=== PATIENT | female | born 2000 | race Caucasian/White ===

== ENCOUNTER 2023-03-04 11:59 | Emergency (ER) | payer OTHER ==
[2023-03-04 12:35] VITALS: RESP 20; BMI 24.6
[2023-03-04] MEDS ORDERED: ACETAMINOPHEN 1000 MG/100 ML BAG IVPB ONE (13:19)
[2023-03-04] MEDS ORDERED: ACETAMINOPHEN INJECTION 100 ML IVPB ONE (13:23)
[2023-03-04 14:30] LABS: CALCIUM 8.8 mg/dL (8.5-10.1)
[2023-03-04 14:31] LABS: ALBUMIN 2.9 g/dl (3.4-5.0)
[2023-03-04 14:36] LABS: BILIRUBIN,TOTAL 0.4 mg/dL (0.2-1); TOT PROT 6.9 g/dl (6.4-8.2)
[2023-03-04 14:40] LABS: BASO % 0.1 % (0-2.0); HEMATOCRIT 29.5 % (32.4-45.2); HEMOGLOBIN 9.3 GM/dL (10.7-15.3); LYMPH % 5.9 % (8-40); MCH 27.2 pg (25.7-33.7); MCHC 31.3 g/dl (32.0-36.0); MEAN CELL VOLUME 86.7 fl (80-96); MEAN PLT VOLUME 8.9 fl (7.5-11.1); MONO % 4.6 % (3.8-10.2); NEUT % 89.4 % (42.8-82.8); PLATELET COUNT 292 10^3/uL (134-434); RBC 3.41 M/mm3 (3.60-5.2); RDW 13.3 % (11.6-15.6); WHITE BLOOD COUNT 19.7 K/mm3 (4.0-10.0)
[2023-03-04 14:55] LABS: INR 0.97 (0.83-1.09); PROTHROMBIN TIME (PATIENT) 11.3 SEC (9.7-13.0)
[2023-03-04 14:56] LABS: CREATININE 0.7 mg/dL (0.55-1.3)
[2023-03-04 14:58] LABS: ACTIVATED PTT 27.3 SECONDS (25.2-36.5)
[2023-03-04 15:57] LABS: URINE APPEARANCE TURBID; URINE BILIRUBIN NEGATIVE (NEGATIVE); URINE COLOR YELLOW; URINE GLUCOSE (UA) TRACE (NEGATIVE); URINE KETONE NEGATIVE (NEGATIVE); URINE LEUK ESTERASE NEGATIVE (NEGATIVE); URINE NITRITE NEGATIVE (NEGATIVE); URINE PROTEIN TRACE (NEGATIVE); URINE UROBILINOGEN 0.2 mg/dL (0.2-1.0)
[2023-03-04] MEDS ORDERED: PIPERACILLIN/TAZOB 3.375 GM 3.375 GM in DEXTROSE 5%-WATER - 50 ML IVPB ONE (16:23)
[2023-03-04] MEDS ORDERED: PIPERACILLIN/TAZOB 3.375 GM 3.375 GM/50 ML BAG IVPB ONE (16:34)
[2023-03-04 20:28] LABS: BASO % 0.1 % (0-2.0); HEMATOCRIT 29.8 % (32.4-45.2); HEMOGLOBIN 9.5 GM/dL (10.7-15.3); LYMPH % 9.4 % (8-40); MCH 27.1 pg (25.7-33.7); MEAN CELL VOLUME 84.9 fl (80-96); MEAN PLT VOLUME 9.1 fl (7.5-11.1); MONO % 6.1 % (3.8-10.2); NEUT % 84.4 % (42.8-82.8); PLATELET COUNT 293 10^3/uL (134-434); RBC 3.51 M/mm3 (3.60-5.2); RDW 13.4 % (11.6-15.6)
[2023-03-04 20:30] VITALS: BP 100/64; PULSE 98; TEMP 97.1
== END 2023-03-04 21:21 | disposition home or self-care (01) ==
LOC: JER 11:59
PROC: 3E03329 Introduction of Other Anti-infective into Peripheral Vein, Percutaneous Approach (ICD-10-PCS; principal; 2023-03-04)
PROC: 3E033NZ Introduction of Analgesics, Hypnotics, Sedatives into Peripheral Vein, Percutaneous Approach (ICD-10-PCS; 2023-03-04)
DX: O26.892 Other specified pregnancy related conditions, second trimester (principal); R10.31 Right lower quadrant pain; R10.32 Left lower quadrant pain; O21.9 Vomiting of pregnancy, unspecified; R19.7 Diarrhea, unspecified; R00.0 Tachycardia, unspecified; Z3A.26 26 weeks gestation of pregnancy
CPT/HCPCS: 36415; 72195-TC; 76775-TC; 76815; 76856-TC; 80053; 81003; 83690; 85025; 85610; 85730; 87077; 87086; 96365; 96375; 99285-25

== ENCOUNTER 2023-05-28 20:15 | Inpatient (IN) | payer OTHER ==
[2023-05-28 20:59] LABS: BASO % 0.2 % (0-2.0); EOS % 0.3 % (0-4.5); HEMATOCRIT 30.5 % (32.4-45.2); HEMOGLOBIN 10.1 GM/dL (10.7-15.3); LYMPH % 14.8 % (8-40); MCH 26.1 pg (25.7-33.7); MCHC 32.9 g/dl (32.0-36.0); MEAN CELL VOLUME 79.3 fl (80-96); MEAN PLT VOLUME 8.7 fl (7.5-11.1); NEUT % 74.7 % (42.8-82.8); PLATELET COUNT 327 10^3/uL (134-434); RBC 3.85 M/mm3 (3.60-5.2); RDW 19.9 % (11.6-15.6); WHITE BLOOD COUNT 11.8 K/mm3 (4.0-10.0)
[2023-05-28 21:10] LABS: INR 1.03 (0.83-1.09); PROTHROMBIN TIME (PATIENT) 11.9 SEC (9.7-13.0)
[2023-05-28 21:12] LABS: ACTIVATED PTT 28.4 SECONDS (25.2-36.5)
[2023-05-28 21:23] LABS: POTASSIUM 4.2 mmol/L (3.5-5.1)
[2023-05-28 21:24] LABS: CALCIUM 9.4 mg/dL (8.5-10.1)
[2023-05-28 21:25] LABS: BLOOD UREA NITROGEN 10.5 mg/dL (7-18)
[2023-05-28 21:28] LABS: CREATININE 0.5 mg/dL (0.55-1.3)
[2023-05-28] MEDS: ELECTROLYTE-148 SOLN 1,000 ML IV SCH (21:45)
[2023-05-28] MEDS ORDERED: OXYTOCIN 30 UNITS in 0.9% NS 30 UNIT/500 ML INFUS.BAG IVPB ONE (21:54)
[2023-05-28] MEDS: OXYTOCIN 30 UNITS in 0.9% NS 30 UNIT/500 ML INFUS.BAG IVPB SCH (22:00)
[2023-05-28] MEDS ORDERED: LABETALOL HCL 200 MG TABLET (FP) ONE (22:16)
[2023-05-28] MEDS: LABETALOL HCL 200 MG TABLET (FP) PO SCH (22:20)
[2023-05-28 22:28] VITALS: BMI 33.5
[2023-05-29] MEDS ORDERED: FENTANYL/BUPIVACAINE/NS/PF - PCEA - 50 ML DISP.SYRIN EP ONE ×4 (01:32→11:01)
[2023-05-29] MEDS ORDERED: NALOXONE HCL 0.4 MG/ML VIAL IVPUSH PRN (01:38)
[2023-05-29] MEDS ORDERED: LIDO 2%/EPI 1:200000 PRESRVFRE (20 ML SDVIAL) ONE (01:41)
[2023-05-29] MEDS ORDERED: BUPIVACAINE HCL/PF 0.25% (2.5MG/ML) 10 ML VIAL ONE (01:41)
[2023-05-29] MEDS: FENTANYL/BUPIVACAINE/NS/PF - PCEA - 50 ML DISP.SYRIN EP SCH (02:00)
[2023-05-29] MEDS ORDERED: FENTANYL CITRATE/PF 50 MCG/ML VIAL ONE (08:19)
[2023-05-29] MEDS ORDERED: OXYTOCIN 20 UNITS in 0.9% NS 20 UNIT/1,000 ML INFUS.BAG IV ONE (09:36)
[2023-05-29] MEDS ORDERED: LIDOCAINE HCL 1% PRESERVATIVE FREE - 30ML VIAL ONE (13:17)
[2023-05-29] MEDS: OXYTOCIN 20 UNITS in 0.9% NS 20 UNIT/1,000 ML INFUS.BAG IV SCH (13:30)
[2023-05-29] MEDS ORDERED: METHYLERGONOVINE MALEATE 0.2 MG/1 ML AMP IM PRN (16:52)
[2023-05-29] MEDS ORDERED: BENZOCAINE 28 GM HEMORRHOIDAL OINTMENT TP PRN (16:52)
[2023-05-29] MEDS ORDERED: OXYTOCIN 20 UNITS in 0.9% NS 20 UNIT/1,000 ML INFUS.BAG IV SCH (17:00)
[2023-05-29] MEDS: oxyCODONE HCL 5 MG TABLET PO PRN (17:12)
[2023-05-29] MEDS: IBUPROFEN 600 MG TABLET (FP) PO PRN (19:08)
[2023-05-30 09:23] LABS: BASO % 0.2 % (0-2.0); HEMATOCRIT 25.5 % (32.4-45.2); HEMOGLOBIN 8.3 GM/dL (10.7-15.3); LYMPH % 22.1 % (8-40); MCH 25.9 pg (25.7-33.7); MCHC 32.4 g/dl (32.0-36.0); MEAN CELL VOLUME 79.9 fl (80-96); MEAN PLT VOLUME 8.9 fl (7.5-11.1); MONO % 8.3 % (3.8-10.2); NEUT % 68.4 % (42.8-82.8); PLATELET COUNT 250 10^3/uL (134-434); RDW 20.8 % (11.6-15.6); WHITE BLOOD COUNT 14.1 K/mm3 (4.0-10.0)
[2023-05-30 10:01] LABS: ANISOCYTOSIS 1+; MACROCYTOSIS 1+
[2023-05-30] MEDS: ACETAMINOPHEN 325 MG TABLET (FP) PO PRN (15:07)
[2023-05-30] MEDS: AMPICILLIN - 2 GM in SODIUM CHLORIDE 100 ML IVPB SCH (18:03)
[2023-05-30] MEDS: WITCH HAZEL 50% (TUCKS) 40 PAD/JAR PAD TP PRN (18:06)
[2023-05-30] MEDS: BENZOCAINE 20% 57 GM BOTTLE TP PRN (18:07)
[2023-05-30] MEDS: CLINDAMYCIN 900 MG PREMIX IVPB 900 MG/50 ML BAG IVPB SCH (18:45)
[2023-05-30] MEDS ORDERED: IBUPROFEN 800 MG/8 ML IJ IVPB PRN (21:41)
[2023-05-30] MEDS ORDERED: SENNOSIDES/DOCUSATE COMBO (SENNA PLUS) TABLET (UD) PO PRN (22:00)
[2023-05-30] MEDS: BISACODYL 10 MG SUPP.RECT RC PRN (22:12)
[2023-05-30] MEDS: GENTAMICIN 80 MG PREMIXED IVPB 80 MG/100 ML BAG IVPB SCH ×2 (23:18)
[2023-05-31] MEDS: AMPICILLIN - 2 GM in SODIUM CHLORIDE 100 ML IVPB SCH (00:30)
[2023-05-31] MEDS: ACETAMINOPHEN 1000 MG/100 ML BAG IVPB PRN (01:16)
[2023-05-31 08:08] LABS: BASO % 0.2 % (0-2.0); EOS % 1.4 % (0-4.5); HEMATOCRIT 25.7 % (32.4-45.2); HEMOGLOBIN 8.2 GM/dL (10.7-15.3); MCH 25.9 pg (25.7-33.7); MCHC 31.9 g/dl (32.0-36.0); MEAN CELL VOLUME 81.1 fl (80-96); MEAN PLT VOLUME 8.6 fl (7.5-11.1); MONO % 9.1 % (3.8-10.2); NEUT % 60.3 % (42.8-82.8); PLATELET COUNT 273 10^3/uL (134-434); RBC 3.17 M/mm3 (3.60-5.2); RDW 21.3 % (11.6-15.6); WHITE BLOOD COUNT 12.5 K/mm3 (4.0-10.0)
[2023-05-31 09:05] VITALS: BP 115/73; PULSE 90; RESP 16; TEMP 98.7
== END 2023-05-31 14:00 | disposition home or self-care (01) | DRG 560 ==
LOC: JLDR 20:15 → J3W 05-29 16:00
PROVIDERS: ADMIT Specialist; ATTEND Specialist
PROC: 10E0XZZ Delivery of Products of Conception, External Approach (ICD-10-PCS; principal; 2023-05-29)
PROC: 0W8NXZZ Division of Female Perineum, External Approach (ICD-10-PCS; 2023-05-29)
DX: O80 Encounter for full-term uncomplicated delivery (principal); Z3A.37 37 weeks gestation of pregnancy; Z37.0 Single live birth
CPT/HCPCS: 36415; 80048; 85025; 85610; 85730; 86780; 86850; 86900; 86901; J0131

== ENCOUNTER 2023-07-24 11:38 | Emergency (ER) | payer OTHER ==
[2023-07-24 11:50] VITALS: BP 120/74; PULSE 102; RESP 20; TEMP 97.3; BMI 32.1
[2023-07-24 12:38] LABS: THROAT:GRP A STREP NOT DETECTED (NOTDETECTED)
[2023-07-24] MEDS ORDERED: IBUPROFEN 600 MG TABLET (FP) PO ONE (12:45)
[2023-07-24] MEDS: IBUPROFEN 600 MG TABLET (FP) PO ONE ×2 (12:48→13:18)
[2023-07-24] MEDS ORDERED: ONDANSETRON 4 MG TABLET PO ONE (13:15)
[2023-07-24] MEDS: ONDANSETRON 4 MG TABLET PO ONE (13:21)
[2023-07-24] MEDS: PENICILLIN V POTASSIUM 500 MG TABLET PO ONE (13:27)
== END 2023-07-24 13:39 | disposition home or self-care (01) ==
LOC: JERFT 11:38
DX: J02.9 Acute pharyngitis, unspecified (principal); R05.9 Cough, unspecified; R09.81 Nasal congestion; R11.10 Vomiting, unspecified; Z20.822 Contact with and (suspected) exposure to COVID-19
CPT/HCPCS: 0241U-QW; 87651; 99283-25